=== PATIENT | female | born 1965 | race Caucasian/White ===

== ENCOUNTER 2016-09-19 07:03 | Emergency (ER) | payer OTHER ==
[~2016-09-19] VITALS: Ht 154.9 cm; Wt 71.2 kg
[2016-09-19 07:13] VITALS: BP 151/89
--- NOTE | 2016-09-19 07:36 | ED HAND/WRIST INJURY COMPLAINT ---
History of Present Illness General Chief Complaint: Hand or Wrist Injury Stated Complaint: WORK INJURY LT WRIST PAIN S/P CAUGHT AGAINST WALL Source: patient Exam Limitations: no limitations Vital Signs & Intake/Output Vital Signs & Intake/Output Vital Signs Date Time Temp Pulse Resp B/P Pulse O2 O2 Flow FiO2 Ox Delivery Rate 09/19 0713 98.0 87 20 151/89 98 Room Air Allergies Coded Allergies: tramadol (HIVES 09/19/16) Uncoded Allergies: BLOOD PRESSURE MEDS (UNKNOWN 09/19/16) Reconcile Medications [PROPANOLOL] TAB 1 TAB PO DAILY HTN (Reported) Triage Note: PT TO ED C/O LEFT WRIST PAIN. STATES IT HAPPENED AT WORK. WRIST WAS PINNED BETWEEN WALL AND LINEN CART. HAPPENED YESTERDAY. DECLINING MEDS IN TRIAGE. WORKERS COMP FORM FILED. Triage Nurses Notes Reviewed? yes HPI: Yesterday at work patient caught her left wrist between a stretcher and the wall. Today she was unable to move the patient secondary to pain in her left wrist. The pain is throbbing in nature and is constant. The pain increases with movement and use. There has been no relief with ibuprofen. There is no numbness or tingling. At its worst the pain is 8 out of 10. Patient denies any other injury. Past History Travel History Traveled to [place] past 21 day No Medical History Any Pertinent Medical History? see below for history Cardiovascular: hypertension Musculoskeletal: ARTHRITIS Surgical History Surgical History: non-contributory Psychosocial History What is your primary language Bahamian Tobacco Use: Never used ETOH Use: denies use Illicit Drug Use: denies illicit drug use Family History Hx Contributory? No Review of Systems Review of Systems Constitutional: Reports: no symptoms. Respiratory: Reports: no symptoms. Cardiovascular: Reports: no symptoms. GI: Reports: no symptoms. Musculoskeletal: Reports: see HPI, joint pain. Neurological/Psychological: Reports: no symptoms. Immunologic/Allergic: Reports: no symptoms. Physical Exam Physical Exam General Appearance: well developed/nourished, alert, awake, moderate distress Eyes: Bilateral: PERRL, EOMI. Neck: normal inspection, supple Forearm Left: normal range of motion, normal inspection Wrist Left: tenderness, pain, soft tissue tenderness Hand Left: normal inspection, normal range of motion Hand Right: normal inspection, normal range of motion Neurologic/Tendon: normal sensation, normal motor functions, normal tendon functions Progress Differential Diagnosis: contusion, dislocation, fracture, sprain Plan of Care: Orders Procedure Date/time Status Durable Medical Equipment 09/20 739 Active Diagnostic Imaging: Viewed by Me: Radiology Read. Discussed w/RAD: Radiology Read. Radiology Impression: PATIENT: MAGDALENO WILLIS PRESENT AGE: 51 PATIENT ACCOUNT NO: [id number] : 69 LOCATION: [facility] ORDERING PHYSICIAN: DMITRY LLAMAS MD SERVICE DATE: 09/19/16 EXAM TYPE: RAD - XRY-WRIST COMPLETE-LEFT EXAMINATION: XR WRIST, LEFT CLINICAL INFORMATION: Injury to left wrist. COMPARISON: None TECHNIQUE: Left wrist 4 views. of the left wrist. FINDINGS: The bones and soft tissues are normal. No fracture. Alignment is anatomic with normal joint spaces. No erosions or abnormal soft tissue calcifications. IMPRESSION: Normal left wrist. DICTATED BY: TARAH NOVA MD DATE/TIME DICTATED:09/19/16742 VICE PRESIDENT QUALITY:ANNITA DATE/TIME TRANSCRIBED:09/19/16742 CONFIDENTIAL, DO NOT COPY WITHOUT APPROPRIATE AUTHORIZATION. <Electronically signed in Other Vendor System> SIGNED BY: TARAH NOVA MD 09/19/16747 Departure Departure Disposition: HOME OR SELF CARE Condition: Stable Clinical Impression Primary Impression: Contusion of left wrist Qualifiers: Encounter type: initial encounter Qualified Code: S60.212A - Contusion of left wrist, initial encounter Referrals: PATIENT HAS NO PRIMARY CARE DR (PCP/Family) Additional Instructions: WEAR SPLINT FOR COMFORT FOLLOW UP WITH [facility] RETURN FOR ANY CONCERNS Departure Forms: Customer Survey Employee Industrial Accident General Discharge Information Procedures Splinting Location: LEFT WRIST Manual Alignment Performed: No Pre-Made Type: velcro Splint: wrist Splint Applied By: splint applied by me Pre-Proc Neuro Vasc Exam: normal Post-Proc Neuro Vasc Exam: normal
--- NOTE | 2016-09-19 07:48 | RADIOLOGY REPORT ---
EXAMINATION: XR WRIST, LEFT CLINICAL INFORMATION: Injury to left wrist. COMPARISON: None TECHNIQUE: Left wrist 4 views. of the left wrist. FINDINGS: The bones and soft tissues are normal. No fracture. Alignment is anatomic with normal joint spaces. No erosions or abnormal soft tissue calcifications. IMPRESSION: Normal left wrist.
[2016-09-19] MEDS ORDERED: PROPANOLOL PO (07:54)
== END 2016-09-19 08:00 ==
LOC: ERH 07:03
DX: S60.212A Contusion of left wrist, initial encounter (principal); W23.0XXA Caught, crushed, jammed, or pinched between moving objects, initial encounter; Y92.9 Unspecified place or not applicable; Y93.9 Activity, unspecified
CPT/HCPCS: 73110-LT